=== PATIENT | male | born 1965 | race Hispanic/Latino ===

== ENCOUNTER 2018-06-07 12:59 | Emergency (ER) | payer MEDICARE ==
[2018-06-07 12:59] VITALS: BMI 29.7
[2018-06-07 13:06] VITALS: RESP 20
[2018-06-07] MEDS ORDERED: Mag&Al/Simet/Diphen/Lido 237 ML KIT PO STA (13:28)
[2018-06-07 14:05] LABS: BASO # 0.1 K/uL (0.0-0.2); BASO % 2.3 % (0.0-2.0); EOS # 0.2 K/uL (0.0-0.7); EOS % 4.6 % (0.0-4.0); HEMOGLOBIN 14.5 g/dL (12.0-18.0); LYMPH # 1.8 K/uL (1.0-4.3); LYMPH % 44.7 % (20.0-40.0); MEAN CELL VOLUME 92.6 fL (80.0-94.0); MEAN CORPUSCULAR HEMOGLOBIN 30.6 pg (27.0-31.0); MEAN PLATELET VOLUME 9.3 fL (7.2-11.7); MONO # 0.4 K/uL (0.0-0.8); MONO % 9.3 % (0.0-10.0); NEUT # 1.6 K/uL (1.8-7.0); NEUT % 39.1 % (50.0-75.0); RBC 4.74 Mil/uL (4.40-5.90); RED CELL DISTRIBUTION WIDTH 13.2 % (11.5-14.5); WHITE BLOOD COUNT 4.1 K/uL (4.8-10.8)
--- NOTE | 2018-06-07 14:05 | C.PDOC ---
History Of Present Illness 52 y/o male presents to the ED for evaluation of possible foreign body in throat. He states that 2 days ago he was chewing on chicken bones, and since then he feels like one is stuck in his throat. Patient is still able to eat bread, drink coffee, and eat other food without difficulty or vomiting but that he feels some intermittent pain to his lower throat. He denies any change in voice, difficulty swallowing, and difficulty handling secretions. Time Seen by Provider: 06/07/18 13:08 Chief Complaint (Nursing): Foreign Body History Per: Patient History/Exam Limitations: None Onset/Duration Of Symptoms: Days (3) Current Symptoms Are (Timing): Still Present Past Medical History Reviewed: Historical Data, Nursing Documentation, Vital Signs Vital Signs: Last Vital Signs Temp 97.9 F 06/07/18 13:05 Pulse 94 H 06/07/18 13:05 Resp 20 06/07/18 13:05 BP 145/91 H 06/07/18 13:05 Pulse Ox 100 06/07/18 13:05 - Medical History PMH: HTN Denies: Chronic Kidney Disease - [facility] CIRCUMCISION (06/27/13) Family History: States: Unknown Family Hx - Social History Hx Alcohol Use: No Hx Substance Use: No - Immunization History Hx Tetanus Toxoid Vaccination: No Hx Influenza Vaccination: No Hx Pneumococcal Vaccination: No Review Of Systems Constitutional: Negative for: Fever ENT: Positive for: Throat Pain (and foreign body sensation). Negative for: Ear Pain, Ear Discharge, Nose Pain, Nose Discharge, Nose Congestion, Mouth Pain, Mouth Swelling, Throat Swelling Cardiovascular: Negative for: Chest Pain Respiratory: Negative for: Cough, Shortness of Breath Gastrointestinal: Negative for: Nausea, Vomiting Musculoskeletal: Negative for: Neck Pain, Back Pain Skin: Negative for: Rash Neurological: Negative for: Headache, Dizziness Physical Exam - Physical Exam Appears: Well, Non-toxic, No Acute Distress Skin: Warm, Dry Head: Atraumatic, Normacephalic Eye(s): bilateral: Normal Inspection, PERRL, EOMI Nose: Normal Oral Mucosa: Moist Throat: Normal (Oropharynx is clear, airway patent, no foreign body visualized), No Erythema, No Drooling Neck: Normal ROM Chest: Symmetrical Cardiovascular: Rhythm Regular, No Murmur Respiratory: Normal Breath Sounds, No Rales, No Rhonchi, No Wheezing Gastrointestinal/Abdominal: Soft, No Tenderness, No Distention Extremity: Bilateral: Atraumatic, Normal Color And Temperature Pulses: Left Radial: Normal, Right Radial: Normal Neurological/Psych: Oriented x3, Normal Speech ED Course And Treatment - Laboratory Results Result Diagrams: 06/07/18 13:59 06/07/18 13:59 O2 Sat by Pulse Oximetry: 100 (RA) Pulse Ox Interpretation: Normal - CT Scan/US CT Neck Soft Tissue Other Rad Studies (CT/US): Read By Radiologist, Radiology Report Reviewed CT/US Interpretation: No evidence of radiopaque foreign body in the hypopharynx or soft tissues of the neck Medical Decision Making Medical Decision Making: Impression: Throat pain, Foreign body Plan: - CMP - CBC - CT Neck Soft Tissue w/ contrast - Magic mouthwash 5 ml PO Accession No. : [id number] Patient Name / ID : GORGE GARCIA / [id number] Exam Date : 06/07/2018 15:40:03 ( Approved ) Study Comment : Sex / Age : M / 52Y Creator : Krysta Connolly Dictator : Celia Beyer MD Outgoing Inspector : Resolution Agent : Celia Beyer MD Approver2 : Report Date : 06/07/2018 16:01:55 My Comment : Date of service: 06/07/2018 PROCEDURE: CT NECK WITH CONTRAST FINDINGS: NASOPHARYNX: Within normal limit. SUPRAHYOID NECK: No mass or abnormal enhancement in the oropharynx, oral cavity, parapharyngeal space and retropharyngeal space. No radiopaque foreign body. INFRAHYOID NECK: No mass or abnormal enhancement in the larynx, hypopharynx, and supraglottic space. Vocal cords intact. MASS: None. GLANDS: Parotid and submandibular glands unremarkable. Normal size thyroid gland, without nodule. LYMPH NODES: Normal. No lymphadenopathy. CERVICAL SPINE: No fracture or focal lesion. Within normal limits for the patient's age with VASCULAR STRUCTURES: Normal intravascular enhancement. OTHER FINDINGS: None. IMPRESSION: Unremarkable contrast enhanced CT of the neck. No evidence of radiopaque foreign body in the hypopharynx or soft tissues of the neck Imaging findings discussed with patient. 4:28PM Patient is tolerating po. He is phonating normally and tolerating secretions. He reports feeling better after getting magic mouthwash. He feels better and was instructed to follow-up with ENT Disposition - Disposition Referrals: Torsten Mcgarry MD [Staff Provider] - Disposition: HOME/ ROUTINE Disposition Time: 16:22 Condition: GOOD Additional Instructions: Follow-up with PMD within 2 days. Return to ED if condition worsens. Follow-up with ENT for persistent throat pain. Prescriptions: Ibuprofen [Motrin] 400 mg PO Q6 PRN #30 tab PRN Reason: Sore Throat Forms: [facility] (Romansh), Work Excuse - Clinical Impression Clinical Impression: Throat pain, Sensation of foreign body in throat - Scribe Statement The provider has reviewed the documentation as recorded by the Paty Hooper Provider Attestation: All medical record entries made by the Paty were at my direction and personally dictated by me. I have reviewed the chart and agree that the record accurately reflects my personal performance of the history, physical exam, medical decision making, and the department course for this patient. I have also personally directed, reviewed, and agree with the discharge instructions and disposition.
[2018-06-07 14:18] LABS: ALB/GLOB RATIO 1.3 (1.0-2.1); ALBUMIN 4.7 g/dL (3.5-5.0); ALT/SGPT 79 U/L (21-72); AST/SGOT 59 U/L (17-59); BLOOD UREA NITROGEN 13 mg/dL (9-20); CALCIUM 9.7 mg/dl (8.6-10.4); GFR NON-AFRICAN AMERICAN > 60
[2018-06-07] MEDS ORDERED: Iodixanol 320 MG/ML 100 ML BOTTLE IV ONE (15:17)
--- NOTE | 2018-06-07 16:15 | CT ---
Date of service: 06/07/2018 PROCEDURE: CT NECK WITH CONTRAST HISTORY: complaint of chicken bone in throat COMPARISON: None available. TECHNIQUE: CT of the neck with intravenous contrast. Coronal and sagittal reformats generated. Intravenous contrast dose: 100 mL Visipaque 320 Radiation dose: Total exam DLP = 441.23 mGy-cm. This CT exam was performed using one or more of the following dose reduction techniques: Automated exposure control, adjustment of the mA and/or kV according to patient size, and/or use of iterative reconstruction technique. FINDINGS: NASOPHARYNX: Within normal limit. SUPRAHYOID NECK: No mass or abnormal enhancement in the oropharynx, oral cavity, parapharyngeal space and retropharyngeal space. No radiopaque foreign body. INFRAHYOID NECK: No mass or abnormal enhancement in the larynx, hypopharynx, and supraglottic space. Vocal cords intact. MASS: None. GLANDS: Parotid and submandibular glands unremarkable. Normal size thyroid gland, without nodule. LYMPH NODES: Normal. No lymphadenopathy. CERVICAL SPINE: No fracture or focal lesion. Within normal limits for the patient's age with VASCULAR STRUCTURES: Normal intravascular enhancement. OTHER FINDINGS: None. IMPRESSION: Unremarkable contrast enhanced CT of the neck. No evidence of radiopaque foreign body in the hypopharynx or soft tissues of the neck
[2018-06-07 16:33] VITALS: BP 109/73; PULSE 73; TEMP 97.4
[2018-06-07 17:40] VITALS: O2SAT 100
== END 2018-06-07 16:47 | disposition home or self-care (01) ==
LOC: C.ER 12:59
DX: R09.89 Other specified symptoms and signs involving the circulatory and respiratory systems (principal); R07.0 Pain in throat; I10 Essential (primary) hypertension
CPT/HCPCS: 70491; 80053; 85025; 99285; Q9967